=== PATIENT | male | born 1995 | race Caucasian/White ===

== ENCOUNTER 2022-03-05 19:25 | Inpatient (IN) ==
[2022-03-05] MEDS ORDERED: SODIUM CHLORIDE 0.9% 1000ML 1,000 ML IV SCH (20:30)
[2022-03-05 20:31] LABS: Basophils # (auto) 0.04 K/uL (0-0.2); Basophils % (auto) 0.4 %; Eosinophils # (auto) 0.09 K/uL (0-0.50); Eosinophils % (auto) 0.9 %; Hematocrit (blood only) 40.6 % (40.1-51.0); Hemoglobin 14.4 g/dl (14.0-18.0); Immature Granulocytes # (auto) 0.06 K/uL (0.00-0.02); Immature Granulocytes % (auto) 0.6 %; Lymphocytes # (auto) 1.15 K/uL (1.2-3.4); Lymphocytes % (auto) 11.6 %; Mean Corpuscular Hemoglobin 30.1 pg (25.0-34.0); Mean Corpuscular Hgb Conc 35.5 g/dL (32.0-36.0); Mean Corpuscular Volume 84.8 fL (80.0-100.0); Mean Platelet Volume 10.1 fL (9.4-12.4); Monocytes # (auto) 0.76 K/uL (0.24-0.82); Monocytes % (auto) 7.7 %; Neutrophils # (auto) 7.79 K/uL (1.4-6.5); Neutrophils % (auto) 78.8 %; Platelet Count 308 K/uL (130-400); RDW Coefficient of Variation 12.3 % (11.5-14.5); RDW Standard Deviation 37.8 fL (36.4-46.3); Red Blood Count 4.79 M/uL (4.63-6.08); White Blood Count 9.89 K/ul (4.8-10.8)
[2022-03-05] MEDS ORDERED: SULFAMETHOXAZOLE/TRIMETHOPRIM DS 800/160MG TAB PO ONE (20:51)
[2022-03-05] MEDS ORDERED: ceFAZolin 3,000 MG in DEXTROSE 5% 50 ML IV STA (20:51)
[2022-03-05] MEDS ORDERED: LIDOCAINE 1% LOCAL 20 ML VIAL INFIL ONE (20:52)
[2022-03-05 20:53] LABS: Albumin Globulin Ratio 1.2 (0.9-2); Albumin Level 4.6 gm/dl (3.4-5.0); BUN Creatinine Ratio 15.4 (10-20); Bilirubin,Total 1.4 mg/dl (0.2-1.0); Calcium 9.3 mg/dl (8.5-10.1); Creatinine Clr Calc Pharmacy 194.1 ml/min; Est GFR (African American) 146.4 ml/min; Est GFR (Non-African American) 126.3 ml/min; Globulin 3.7 gm/dl (2.5-4.0); Magnesium 2.1 mg/dl (1.7-2.4); Potassium 3.6 mmol/L (3.5-5.1); Total Protein 8.3 gm/dl (6.0-8.3)
[2022-03-05 20:57] LABS: Partial Thromboplastin Ratio 1.1; Partial Thromboplastin Time 30.6 Seconds (21.0-31.0); Prothrombin Time 11.1 Seconds (9.0-12.0)
[2022-03-06] MEDS ORDERED: ACETAMINOPHEN 500 MG TAB PO STA (00:30)
[2022-03-06] MEDS ORDERED: LACTATED RINGER'S 1,000 ML IV ONE (00:40)
--- NOTE | 2022-03-06 01:25 | Emergency Department Note ---
Impression & Plan Cellulitis of right elbow, Bursitis of right elbow, History of MRSA infection, Fever ED Provider Note CHIEF COMPLAINT: Right arm infection HISTORY OF PRESENT ILLNESS: This 26 yo male patient presents to the emergency department with complaints of a right arm infection. The patient states 5 days ago he noticed some elbow discomfort. Today he realized that the swelling and redness has gotten fairly large. The patient was noted to have a fever of 103 degrees at the urgent care clinic today and was referred to the emergency department. He denies any significant medical problems such as diabetes. He denies any known trauma to the elbow. Patient denies any significant occupational exposures. He has not been taking any medications recently. REVIEW OF SYSTEMS: A review of systems was performed with positives and pertinent negatives listed in the history of present illness. 10 systems were reviewed and are otherwise negative. ALLERGIES: see below MEDICATIONS: see below PMH: see below SOCIAL HISTORY: see below Differential diagnosis: Bursitis, cellulitis, abscess, fracture, foreign body, dislocation, DVT amongst others PHYSICAL EXAM: Vital signs reviewed. Warm to touch. Noted to be afebrile General: Well-appearing 26-year-old male, in no significant distress. HEENT: No scleral icterus, PERRLA, neck supple. Moist mucous membranes Cardiovascular: Regular rate and rhythm, no extra sounds. Pulmonary: Clear to auscultation bilaterally, normal work of breathing. Abdomen: Soft, nontender, nondistended, positive bowel sounds. Musculoskeletal: Atraumatic, no peripheral edema. Neurologic: Patient awake alert and oriented x 3, speech is clear Skin: Warm, dry, large area of erythema with induration and fluctuance noted at the right elbow. Erythema extends from the wrist to the axilla. Small papule noted at the elbow that was unroofed. EMERGENCY DEPARTMENT COURSE/MDM: This patient was evaluated and appeared to be in no significant distress. IV access was obtained and laboratory work was drawn. The patient was placed on the hospital monitor and noted to be in a sinus tachycardia. He was medicated with Tylenol for fever. Laboratory work including blood cultures were obtained. Patient's WBC and lactate are normal. Patient was medicated with 3 g of IV Ancef as well as p.o. Bactrim for MRSA coverage. The elbow was aspirated and fluid was sent. The patient does have a rather extensive cellulitis from the wrist to the axilla. Given the purulence of the material aspirated, an ultrasound was obtained and reveals no fluid collection remains. Patient's case was discussed with the hospitalist service will evaluate the patient for admission and further management. The patient is aware of the plan and agrees. MONITORING: An order for cardiac monitoring was placed and the patient is noted to be in a sinus tachycardia at 104 beats per minute. PROCEDURE: Aspiration Indication: Right elbow bursa/abscess Location: Right elbow Verbal consent was obtained after the risks and benefits were explained, including but not limited to bleeding, scarring, infection, pain, and bone/joint/nerve damage. At this time, the risks of the procedure are less than the risks of NOT performing the procedure. A time out was taken and the correct patient and site identified. The skin was prepped with betadine and a sterile field set. The wound was anesthetized with 2 ml of 1% lidocaine without epinephrine. An 18-gauge needle was used to aspirate the right elbow, approximately 3 mL of purulent material was aspirated. This will be sent for culture. Detailed wound care instructions and signs and symptoms of worsening infection reviewed with the patient. No complications and the patient tolerated the procedure well. RADIOLOGY: See below EKG: Sinus tachycardia at 107 bpm. No PVC, no PAC. QTc is 445. Normal axis. DISPOSITION: Admission Past Med/Surg History Medical History History of MRSA infection Social History Smoking Status: Never smoker Hx Alcohol Use: No Hx Substance Use: No Preferred Language: Kyrgyz Communication Ability: Effective Jukebox Route Driver Required: No Beliefs That Will Affect Care: None Current Living Situation: Other Current Living Situation Comment: roommates Feels Safe at Home: Yes Assistive Devices: None Allergies Allergies Allergy/AdvReac Type Severity Reaction Status Date / Time No Known Allergies Allergy Unverified 03/05/22 20:51 Home Meds Home Medications Medication Instructions Recorded Confirmed ibuprofen 200 mg tablet (Advil) 600 mg PO TID PRN Headache/pain 03/06/22 03/06/22 Previous Rx's Medication Instructions Recorded sulfamethoxazole 800 1 tab PO BID 14 days #28 tabs 03/08/22 mg-trimethoprim 160 mg tablet (Bactrim DS) Results & Data (ED) Vital Signs Vital Signs - 24 hr 03/05/22 19:28 03/05/22 20:30 03/05/22 21:00 Temperature 37.4 C Temperature Source Oral Pulse Rate 128 H 104 H Respiratory Rate 18 18 Respiratory Effort / Characteristics Non-Labored Respiratory Depth Normal Blood Pressure 139/82 152/85 H 141/74 H Blood Pressure Mean 101 107 96 Pulse Oximetry 97 96 Oxygen Delivery Method Room Air Room Air Sepsis Recent Fever Within 48 Hours No Sepsis New/Unexplained Change in Mental Status No Sepsis Action Taken by Nursing No Action Required 03/05/22 21:30 03/05/22 22:00 03/05/22 22:30 Temperature Temperature Source Pulse Rate 99 H 109 H 102 H Respiratory Rate 27 H 15 26 H Respiratory Effort / Characteristics Respiratory Depth Blood Pressure 135/73 123/91 140/80 Blood Pressure Mean 93 101 100 Pulse Oximetry 98 99 99 Oxygen Delivery Method Room Air Room Air Room Air Sepsis Recent Fever Within 48 Hours Sepsis New/Unexplained Change in Mental Status Sepsis Action Taken by Nursing 03/05/22 23:00 03/06/22 00:28 03/06/22 00:37 Temperature 38.3 C H Temperature Source Oral Pulse Rate 101 H 114 H Respiratory Rate 16 16 Respiratory Effort / Characteristics Respiratory Depth Blood Pressure 153/89 H 145/82 H Blood Pressure Mean 110 103 Pulse Oximetry 98 99 Oxygen Delivery Method Room Air Room Air Sepsis Recent Fever Within 48 Hours Sepsis New/Unexplained Change in Mental Status Sepsis Action Taken by Jail Medications Current Medication List: was personally reviewed by me Laboratory Data Attestation: I reviewed the patient's lab results. Result diagrams: 03/07/22 09:16 03/07/22 09:16 Lab Results 03/05/22 03/05/22 03/05/22 Range/Units 19:42 19:42 19:42 WBC 9.89 (4.8-10.8) K/ul RBC 4.79 (4.63-6.08) M/uL Hgb 14.4 (14.0-18.0) g/dl Hct 40.6 (40.1-51.0) % MCV 84.8 (80.0-100.0) fL MCH 30.1 (25.0-34.0) pg MCHC 35.5 (32.0-36.0) g/dL RDW Std Deviation 37.8 (36.4-46.3) fL RDW Coeff of Liseth 12.3 (11.5-14.5) % Plt Count 308 (130-400) K/uL MPV 10.1 (9.4-12.4) fL Immature Gran % (Auto) 0.6 % Neut % (Auto) 78.8 % Lymph % (Auto) 11.6 % Mesa % (Auto) 7.7 % Eos % (Auto) 0.9 % Baso % (Auto) 0.4 % Neut # (Auto) 7.79 H (1.4-6.5) K/uL Lymph # (Auto) 1.15 L (1.2-3.4) K/uL Mesa # (Auto) 0.76 (0.24-0.82) K/uL Eos # (Auto) 0.09 (0-0.50) K/uL Baso # (Auto) 0.04 (0-0.2) K/uL Immature Gran # (Auto) 0.06 H (0.00-0.02) K/uL ESR (0-15) mm/hr PT 11.1 (9.0-12.0) Seconds INR 1.0 (0.9-1.1) APTT 30.6 (21.0-31.0) Seconds PTT Ratio 1.1 Sodium 137 (136-145) mmol/L Potassium 3.6 (3.5-5.1) mmol/L Chloride 102 (98-107) mmol/L Carbon Dioxide 24 (21-32) mmol/L Anion Gap 11 (3-11) BUN 12 (6-23) mg/dl Creatinine 0.78 (0.6-1.4) mg/dl Est Cr Clr Drug Dosing 194.1 ml/min Est GFR ( Amer) 146.4 ml/min Est GFR (Non-Af Amer) 126.3 ml/min BUN/Creatinine Ratio 15.4 (10-20) Glucose 90 (70-99(Fasting)) mg/dl Lactate (0.4-2.0) mmol/L Uric Acid 5.4 (2.6-7.2) mg/dl Calcium 9.3 (8.5-10.1) mg/dl Magnesium 2.1 (1.7-2.4) mg/dl Total Bilirubin 1.4 H (0.2-1.0) mg/dl AST 21 (13-39) U/L ALT 18 (7-52) U/L Alkaline Phosphatase 54 (34-104) U/L C-Reactive Protein (0-0.5) mg/dl Total Protein 8.3 (6.0-8.3) gm/dl Albumin 4.6 (3.4-5.0) gm/dl Globulin 3.7 (2.5-4.0) gm/dl Albumin/Globulin Ratio 1.2 (0.9-2) Procalcitonin (0-0.5) ng/ml Nasal Screen MRSA (PCR) (Negative) SARS-CoV-2, RNA, NAAT (NEGATIVE) 03/05/22 03/05/22 03/06/22 Range/Units 20:31 21:54 02:30 WBC (4.8-10.8) K/ul RBC (4.63-6.08) M/uL Hgb (14.0-18.0) g/dl Hct (40.1-51.0) % MCV (80.0-100.0) fL MCH (25.0-34.0) pg MCHC (32.0-36.0) g/dL RDW Std Deviation (36.4-46.3) fL RDW Coeff of Liseth (11.5-14.5) % Plt Count (130-400) K/uL MPV (9.4-12.4) fL Immature Gran % (Auto) % Neut % (Auto) % Lymph % (Auto) % Mesa % (Auto) % Eos % (Auto) % Baso % (Auto) % Neut # (Auto) (1.4-6.5) K/uL Lymph # (Auto) (1.2-3.4) K/uL Mesa # (Auto) (0.24-0.82) K/uL Eos # (Auto) (0-0.50) K/uL Baso # (Auto) (0-0.2) K/uL Immature Gran # (Auto) (0.00-0.02) K/uL ESR (0-15) mm/hr PT (9.0-12.0) Seconds INR (0.9-1.1) APTT (21.0-31.0) Seconds PTT Ratio Sodium (136-145) mmol/L Potassium (3.5-5.1) mmol/L Chloride (98-107) mmol/L Carbon Dioxide (21-32) mmol/L Anion Gap (3-11) BUN (6-23) mg/dl Creatinine (0.6-1.4) mg/dl Est Cr Clr Drug Dosing ml/min Est GFR ( Amer) ml/min Est GFR (Non-Af Amer) ml/min BUN/Creatinine Ratio (10-20) Glucose (70-99(Fasting)) mg/dl Lactate 0.9 (0.4-2.0) mmol/L Uric Acid (2.6-7.2) mg/dl Calcium (8.5-10.1) mg/dl Magnesium (1.7-2.4) mg/dl Total Bilirubin (0.2-1.0) mg/dl AST (13-39) U/L ALT (7-52) U/L Alkaline Phosphatase (34-104) U/L C-Reactive Protein (0-0.5) mg/dl Total Protein (6.0-8.3) gm/dl Albumin (3.4-5.0) gm/dl Globulin (2.5-4.0) gm/dl Albumin/Globulin Ratio (0.9-2) Procalcitonin < 0.05 (0-0.5) ng/ml Nasal Screen MRSA (PCR) (Negative) SARS-CoV-2, RNA, NAAT NEGATIVE (NEGATIVE) 03/06/22 03/06/22 03/06/22 Range/Units 04:55 07:42 07:42 WBC 9.89 (4.8-10.8) K/ul RBC 4.78 (4.63-6.08) M/uL Hgb 13.8 L (14.0-18.0) g/dl Hct 39.7 L (40.1-51.0) % MCV 83.1 (80.0-100.0) fL MCH 28.9 (25.0-34.0) pg MCHC 34.8 (32.0-36.0) g/dL RDW Std Deviation 37.8 (36.4-46.3) fL RDW Coeff of Liseth 12.5 (11.5-14.5) % Plt Count 300 (130-400) K/uL MPV 10.0 (9.4-12.4) fL Immature Gran % (Auto) 0.5 % Neut % (Auto) 80.0 % Lymph % (Auto) 9.7 % Mesa % (Auto) 8.9 % Eos % (Auto) 0.6 % Baso % (Auto) 0.3 % Neut # (Auto) 7.91 H (1.4-6.5) K/uL Lymph # (Auto) 0.96 L (1.2-3.4) K/uL Mesa # (Auto) 0.88 H (0.24-0.82) K/uL Eos # (Auto) 0.06 (0-0.50) K/uL Baso # (Auto) 0.03 (0-0.2) K/uL Immature Gran # (Auto) 0.05 H (0.00-0.02) K/uL ESR (0-15) mm/hr PT (9.0-12.0) Seconds INR (0.9-1.1) APTT (21.0-31.0) Seconds PTT Ratio Sodium 137 (136-145) mmol/L Potassium 3.8 (3.5-5.1) mmol/L Chloride 104 (98-107) mmol/L Carbon Dioxide 22 (21-32) mmol/L Anion Gap 11 (3-11) BUN 7 (6-23) mg/dl Creatinine 0.61 (0.6-1.4) mg/dl Est Cr Clr Drug Dosing 248.1 ml/min Est GFR ( Amer) > 150.0 ml/min Est GFR (Non-Af Amer) 139.8 ml/min BUN/Creatinine Ratio 11.5 (10-20) Glucose 84 (70-99(Fasting)) mg/dl Lactate (0.4-2.0) mmol/L Uric Acid (2.6-7.2) mg/dl Calcium 9.7 (8.5-10.1) mg/dl Magnesium 2.2 (1.7-2.4) mg/dl Total Bilirubin (0.2-1.0) mg/dl AST (13-39) U/L ALT (7-52) U/L Alkaline Phosphatase (34-104) U/L C-Reactive Protein (0-0.5) mg/dl Total Protein (6.0-8.3) gm/dl Albumin (3.4-5.0) gm/dl Globulin (2.5-4.0) gm/dl Albumin/Globulin Ratio (0.9-2) Procalcitonin (0-0.5) ng/ml Nasal Screen MRSA (PCR) Negative (Negative) SARS-CoV-2, RNA, NAAT (NEGATIVE) 03/06/22 03/06/22 03/07/22 Range/Units 15:21 15:21 09:16 WBC 8.84 (4.8-10.8) K/ul RBC 4.62 L (4.63-6.08) M/uL Hgb 13.5 L (14.0-18.0) g/dl Hct 39.0 L (40.1-51.0) % MCV 84.4 (80.0-100.0) fL MCH 29.2 (25.0-34.0) pg MCHC 34.6 (32.0-36.0) g/dL RDW Std Deviation 37.0 (36.4-46.3) fL RDW Coeff of Liseth 12.2 (11.5-14.5) % Plt Count 308 (130-400) K/uL MPV 9.2 L (9.4-12.4) fL Immature Gran % (Auto) 0.6 % Neut % (Auto) 75.6 % Lymph % (Auto) 13.5 % Mesa % (Auto) 9.3 % Eos % (Auto) 0.5 % Baso % (Auto) 0.5 % Neut # (Auto) 6.70 H (1.4-6.5) K/uL Lymph # (Auto) 1.19 L (1.2-3.4) K/uL Mesa # (Auto) 0.82 (0.24-0.82) K/uL Eos # (Auto) 0.04 (0-0.50) K/uL Baso # (Auto) 0.04 (0-0.2) K/uL Immature Gran # (Auto) 0.05 H (0.00-0.02) K/uL ESR 75 H (0-15) mm/hr PT (9.0-12.0) Seconds INR (0.9-1.1) APTT (21.0-31.0) Seconds PTT Ratio Sodium (136-145) mmol/L Potassium (3.5-5.1) mmol/L Chloride (98-107) mmol/L Carbon Dioxide (21-32) mmol/L Anion Gap (3-11) BUN (6-23) mg/dl Creatinine (0.6-1.4) mg/dl Est Cr Clr Drug Dosing ml/min Est GFR ( Amer) ml/min Est GFR (Non-Af Amer) ml/min BUN/Creatinine Ratio (10-20) Glucose (70-99(Fasting)) mg/dl Lactate (0.4-2.0) mmol/L Uric Acid (2.6-7.2) mg/dl Calcium (8.5-10.1) mg/dl Magnesium (1.7-2.4) mg/dl Total Bilirubin (0.2-1.0) mg/dl AST (13-39) U/L ALT (7-52) U/L Alkaline Phosphatase (34-104) U/L C-Reactive Protein 26.33 H (0-0.5) mg/dl Total Protein (6.0-8.3) gm/dl Albumin (3.4-5.0) gm/dl Globulin (2.5-4.0) gm/dl Albumin/Globulin Ratio (0.9-2) Procalcitonin (0-0.5) ng/ml Nasal Screen MRSA (PCR) (Negative) SARS-CoV-2, RNA, NAAT (NEGATIVE) 03/07/22 Range/Units 09:16 WBC (4.8-10.8) K/ul RBC (4.63-6.08) M/uL Hgb (14.0-18.0) g/dl Hct (40.1-51.0) % MCV (80.0-100.0) fL MCH (25.0-34.0) pg MCHC (32.0-36.0) g/dL RDW Std Deviation (36.4-46.3) fL RDW Coeff of Liseth (11.5-14.5) % Plt Count (130-400) K/uL MPV (9.4-12.4) fL Immature Gran % (Auto) % Neut % (Auto) % Lymph % (Auto) % Mesa % (Auto) % Eos % (Auto) % Baso % (Auto) % Neut # (Auto) (1.4-6.5) K/uL Lymph # (Auto) (1.2-3.4) K/uL Mesa # (Auto) (0.24-0.82) K/uL Eos # (Auto) (0-0.50) K/uL Baso # (Auto) (0-0.2) K/uL Immature Gran # (Auto) (0.00-0.02) K/uL ESR (0-15) mm/hr PT (9.0-12.0) Seconds INR (0.9-1.1) APTT (21.0-31.0) Seconds PTT Ratio Sodium 135 L (136-145) mmol/L Potassium 3.8 (3.5-5.1) mmol/L Chloride 101 (98-107) mmol/L Carbon Dioxide 25 (21-32) mmol/L Anion Gap 9 (3-11) BUN 9 (6-23) mg/dl Creatinine 0.67 (0.6-1.4) mg/dl Est Cr Clr Drug Dosing 225.8 ml/min Est GFR ( Amer) > 150.0 ml/min Est GFR (Non-Af Amer) 134.5 ml/min BUN/Creatinine Ratio 13.4 (10-20) Glucose 81 (70-99(Fasting)) mg/dl Lactate (0.4-2.0) mmol/L Uric Acid (2.6-7.2) mg/dl Calcium 9.8 (8.5-10.1) mg/dl Magnesium (1.7-2.4) mg/dl Total Bilirubin (0.2-1.0) mg/dl AST (13-39) U/L ALT (7-52) U/L Alkaline Phosphatase (34-104) U/L C-Reactive Protein (0-0.5) mg/dl Total Protein (6.0-8.3) gm/dl Albumin (3.4-5.0) gm/dl Globulin (2.5-4.0) gm/dl Albumin/Globulin Ratio (0.9-2) Procalcitonin (0-0.5) ng/ml Nasal Screen MRSA (PCR) (Negative) SARS-CoV-2, RNA, NAAT (NEGATIVE) Administered Medications Discontinued Medications Acetaminophen (Acetaminophen 500 Mg Tab) 1,000 mg PO NOW STA Stop: 03/06/22 00:31 Last Admin: 03/06/22 00:34 Dose: 1,000 mg Documented By: VIVIAN Acetaminophen (Acetaminophen 325 Mg Tab) 650 mg PO Q6H PRN PRN Reason: pain/fever Stop: 04/05/22 03:23 Last Admin: 03/06/22 15:12 Dose: 650 mg Documented By: BARB Acetaminophen (Acetaminophen 500 Mg Tab) 1,000 mg PO Q8 LORE Stop: 04/06/22 21:59 Last Admin: 03/08/22 13:07 Dose: 1,000 mg Documented By: Admin: 03/08/22 05:39 Dose: Not Given Documented By: Admin: 03/07/22 21:21 Dose: 1,000 mg Documented By: SANCHEZ Aspirin (Aspirin 81 Mg Ectab) 81 mg PO BID LORE Stop: 04/06/22 20:59 Last Admin: 03/08/22 08:15 Dose: 81 mg Documented By: Admin: 03/07/22 21:22 Dose: 81 mg Documented By: SANCHEZ Docusate Sodium (Docusate Sodium 100 Mg Cap) 100 mg PO BID LORE Stop: 04/06/22 20:59 Last Admin: 03/08/22 08:15 Dose: 100 mg Documented By: Admin: 03/07/22 22:19 Dose: Not Given Documented By: SANCHEZ Sodium Chloride (Nss 1000ml) 1,000 mls @ 999 mls/hr IV .Q1H1M LORE Stop: 03/05/22 21:30 Last Infusion: 03/05/22 21:22 Dose: 0 mls/hr Documented By: Admin: 03/05/22 20:21 Dose: 999 mls/hr Documented By: VIVIAN Cefazolin Sodium 3,000 mg/ (Dextrose) 72.5 mls @ 145 mls/hr IV NOW STA Stop: 03/05/22 21:20 Last Infusion: 03/05/22 23:24 Dose: 0 mls/hr Documented By: Admin: 03/05/22 22:54 Dose: 145 mls/hr Documented By: KOKO Lactated Ringer's (Lr) 1,000 mls @ 500 mls/hr IV .Q2H ONE Stop: 03/06/22 02:39 Last Admin: 03/06/22 02:32 Dose: Not Given Documented By: VIVIAN Daptomycin 500 mg/ Syringe 10 mls @ 5.75 mls/min IV Q24H LORE; Protocol Stop: 03/13/22 02:59 Last Admin: 03/08/22 01:42 Dose: 5.75 mls/min Documented By: Admin: 03/07/22 02:47 Dose: 5.75 mls/min Documented By: Admin: 03/06/22 02:51 Dose: 5.75 mls/min Documented By: VIVIAN Lactated Ringer's (Lr) 1,000 mls @ 150 mls/hr IV .Q6H40M LORE Stop: 04/05/22 02:14 Last Infusion: 03/06/22 12:11 Dose: 0 mls/hr Documented By: Admin: 03/06/22 10:42 Dose: 150 mls/hr Documented By: Infusion: 03/06/22 10:14 Dose: 0 mls/hr Documented By: Infusion: 03/06/22 05:56 Dose: 150 mls/hr Documented By: Admin: 03/06/22 02:51 Dose: 150 mls/hr Documented By: VIVIAN Sodium Chloride (Nss 1000ml) 1,000 mls @ 100 mls/hr IV .Q10H LORE Stop: 03/08/22 06:00 Last Infusion: 03/07/22 21:22 Dose: 0 mls/hr Documented By: Admin: 03/07/22 19:15 Dose: 100 mls/hr Documented By: SANCHEZ Ketorolac Tromethamine (Ketorolac 30 Mg/Ml Vial) 30 mg IV Q6H LORE Stop: 03/09/22 13:26 Last Admin: 03/08/22 13:02 Dose: 30 mg Documented By: Admin: 03/08/22 08:14 Dose: 30 mg Documented By: Admin: 03/08/22 01:42 Dose: 30 mg Documented By: Admin: 03/07/22 21:22 Dose: 30 mg Documented By: SANCHEZ Lidocaine HCl (Lidocaine 1% Local 20 Ml Vial) 20 ml INFIL NOW ONE Stop: 03/05/22 20:53 Last Admin: 03/05/22 22:00 Dose: 20 ml Documented By: VIVIAN Multivitamins (Multivitamin Tab) 1 tab PO QAM LORE Stop: 04/07/22 08:59 Last Admin: 03/08/22 08:15 Dose: 1 tab Documented By: CORRINE Sennosides (Senna 8.6 Mg Tab) 17.2 mg PO HS LORE Stop: 04/06/22 20:59 Last Admin: 03/07/22 22:19 Dose: Not Given Documented By: NCLuz Elena Trimethoprim/Sulfamethoxazole (Sulfamethoxazole/Trimethoprim Ds 800/160mg Tab) 1 tab PO NOW ONE Stop: 03/05/22 20:52 Last Admin: 03/05/22 22:53 Dose: 1 tab Documented By: KOKO Vancomycin HCl (Vancomycin Hcl 1000mg/20ml Vial) Confirm Administered Dose 50 mg .ROUTE .STK-MED ONE Stop: 03/07/22 16:58 Last Admin: 03/07/22 17:37 Dose: 1,000 mg Documented By: SELENE Blood Pressure Blood Pressure Findings: Normal blood pressure Blood Pressure Disposition: further management by hospitalist Discharge Plan Visit Data Chief Complaint: Infection Stated Complaint: INFECTION IN RIGHT ELBOW ED Provider: Adrianne Vaughn Discharge Problem: Cellulitis of right elbow, Bursitis of right elbow, History of MRSA infection, Fever Patient Disposition: Admitted As Inpatient Discharge Instructions Interventions: ED Discharge Assessment Last Done: 03/06/22 03:14 : Bursitis of right elbow Qualifiers: Elbow bursitis location: olecranon bursitis Qualified Code(s): M70.21 - Olecranon bursitis, right elbow Fever Qualifiers: Fever type: due to other condition Qualified Code(s): R50.81 - Fever presenting with conditions classified elsewhere
--- NOTE | 2022-03-06 02:05 | History & Physical Report ---
Date of Service March 06, 2022 Assessment & Plan (1) Sepsis: Plan: Adrian Haley is a 26yo male with h/o MRSA (hand cellulitis x2) who presented to [facility] ED for a skin infection of his right elbow. Sepsis due to right elbow cellulitis and bursitis SIRS 3/4, qSOFA 1/3. Right elbow XR with soft tissue edema but no evidence of osteomyelitis. Bursitis aspirated and follow up US without evidence for deep fluid collection. Symptoms are acute in nature - low suspicion for osteomyelitis and thus will hold on further imaging (i.e. MRI). - lactate 0.9, procalcitonin pending - check MRSA nares - received Ancef x1 and Bactrim x1 in ED - will continue with Daptomycin - blood cx and right bursitis fluid cx taken before initiation of abx - trend and adjust abx as necessary - s/p 1L NSS bolus - continue with full maintenance IVFs with LR @150cc/hr - trend CBC in AM FEN/GI: regular diet, LR @150cc/hr DVT Prophylaxis: SCDs Code Status: full code Disposition: med/surg (2) Cellulitis of right elbow: (3) Bursitis of right elbow: (4) History of MRSA infection: History of Present Illness Chief Complaint: infection Primary Care Provider: NO PCP Adrian Haley is a 26yo male with h/o MRSA (hand cellulitis x2) who presented to [facility] ED for a skin infection of his right elbow. Patient reports that he bumped his right elbow into a wall ~6 days ago and the next day noticed a red rash over the elbow. Over last 5 days it has progressively increased in size - now has an erythematous rash from right elbow to right wrist with associated warmth, swelling and tenderness which is greatest over the elbow itself. Also reports subjective fever/chills which started ~1 day ago. [facility] and was told to come to the ED. Patient denies laceration of right elbow/arm. Denies nausea/vomiting, shortness of breath, or other rashes. He does not drink or smoke. In the ED the patient was febrile with T38.3C, tachypneic at 27, and tachycardic to 128. Labs significant for WBC 9.89 (neutrophilic predominance and mild left shift), TBili 1.4. Lactate 0.9. CBC/CMP otherwise WNL. COVID-19 negative. XR right elbow showing soft tissue edema without signs of osteomyelitis. ED provider performed arthrocentesis of right bursa with purulent fluid - gram stain/cx pending. Patient was given Ancef 3g IV x1 and Bactrim PO x1. Was also given Tylenol 1g PO x1 and NSS 1L bolus. Blood cx and right bursa fluid cx taken before initiation of abx. Allergies Allergy/AdvReac Type Severity Reaction Status Date / Time No Known Allergies Allergy Unverified 03/05/22 20:51 Home Medications Medication Instructions Recorded Confirmed Type ibuprofen 200 mg tablet (Advil) 600 mg PO TID PRN 03/06/22 03/06/22 History Past Med/Surg History Medical History History of MRSA infection Social History Smoking Status: Never smoker Hx Alcohol Use: No Hx Substance Use: No Preferred Language: Honduran Communication Ability: Effective Mainframe Programmer Required: No Beliefs That Will Affect Care: None Current Living Situation: Other Current Living Situation Comment: roommates Other Information That Helps Us Care for You: No Feels Safe at Home: Yes Safety Concerns: Feels Safe At This Time Assistive Devices: None Review of Systems Review of Systems: All systems reviewed & are unremarkable except as noted in HPI & below Physical Exam Physical Exam: General: A&Ox3. NAD. Cooperative. HEENT: Atraumatic, normocephalic. Pulm: CTAB A&P. -wheezes, -rales, -rhonchi. Symmetrical chest rise. No increase work of breathing. No respiratory distress. Cardiac: RRR, -mrg. Radial pulses intact and symmetrical. No LE edema. Abdominal: soft, non-tender, non-distended, BS x 4 Right elbow: erythematous rash with associated swelling/warmth/tenderness spanning from olecranon process to lateral wrist, covering ~50% of forearm. Band-aid overlying area of bursitis (placed after aspiration). Results & Data Results & Data ([facility]) Vital Signs (Past 12 Hours) Vital Signs Temp Pulse Resp BP Pulse Ox 03/06/22 00:37 114 H 16 145/82 H 99 03/06/22 00:28 38.3 C H 03/05/22 23:00 101 H 16 153/89 H 98 03/05/22 22:30 102 H 26 H 140/80 99 03/05/22 22:00 109 H 15 123/91 99 03/05/22 21:30 99 H 27 H 135/73 98 03/05/22 21:00 141/74 H 03/05/22 20:30 104 H 18 152/85 H 96 03/05/22 19:28 37.4 C 128 H 18 139/82 97 Supervising Physician Co-Signing Physician Notes Attending addendum: I have physically seen this patient, have supervised the medical residents activities, and agree with the H&P unless as otherwise noted. Assessment and Plan: Sepsis due to right elbow bursitis and cellulitis- Status post Ancef IV and Bactrim p.o. in the ED Placed on daptomycin 4 mg kilogram IV every 24 hours Status post 1 L normal saline bolus LR 150 mils per hour Follow clinical examination Check uric acid level Remaining orders and notations as noted Resident Activity Tracking Resident Involvement: Resident Care Provided Care Provided: Adult Hospital Medicine
[2022-03-06 02:21] LABS: Uric Acid 5.4 mg/dl (2.6-7.2)
[2022-03-06] MEDS: LACTATED RINGER'S 1,000 ML IV SCH ×2 (02:51→10:42)
[2022-03-06] MEDS: DAPTOmycin 500 MG in SYRINGE 0 ML IV SCH (02:51)
[2022-03-06] MEDS ORDERED: ACETAMINOPHEN 325 MG TAB PO PRN (03:24)
--- NOTE | 2022-03-06 07:08 | XRay Report ---
XR elbow RT min 3V routine CLINICAL HISTORY: possible cellutlitis. COMPARISON STUDY: No previous studies for comparison. TECHNIQUE: 3 right elbow views FINDINGS: Bones: There is no evidence for an acute fracture or dislocation. There is no lytic or blastic lesion . Joints: The joint spaces are maintained. There is no evidence for an intra-articular effusion or elevation of the fat pads. The bones are in a natomic alignment. Soft tissues: There is diffuse subcutaneous edema surrounding the elbow. The findings are characteris tic of cellulitis. No air is seen within the soft tissues. There is no radiopaque foreign body. IMPRESSION: 1. No acute osseous pathology. 2. Diffuse subcutaneous edema characteristic of cellulitis. ACT 112: Negative or not required by law. Electronically signed by: Zak Luke M.D. 03/06/2022 7:07 AM
--- NOTE | 2022-03-06 07:16 | Ultrasound Report ---
US extremity non-vascular ltd right elbow CLINICAL HISTORY: abscess R elbow bursa w cellulitis TECHNIQUE: Real-time grayscale sonographic images of the right elbow were obtained. Comparison: None available at the time of this dictation. FINDINGS: There is diffuse subcutaneous edema surrounding the right elbow characteristic of celluliti s. However, there is no focal fluid seen within the olecranon bursa with no evidence for olecranon bu rsitis. IMPRESSION: Diffuse cellulitis with no evidence for olecranon bursitis. ACT 112: Negative or not required by law. Electronically signed by: Zak Luke M.D. 03/06/2022 7:15 AM
[2022-03-06 08:31] LABS: Basophils # (auto) 0.03 K/uL (0-0.2); Basophils % (auto) 0.3 %; Eosinophils # (auto) 0.06 K/uL (0-0.50); Eosinophils % (auto) 0.6 %; Hematocrit (blood only) 39.7 % (40.1-51.0); Hemoglobin 13.8 g/dl (14.0-18.0); Immature Granulocytes # (auto) 0.05 K/uL (0.00-0.02); Immature Granulocytes % (auto) 0.5 %; Lymphocytes # (auto) 0.96 K/uL (1.2-3.4); Lymphocytes % (auto) 9.7 %; Mean Corpuscular Hemoglobin 28.9 pg (25.0-34.0); Mean Corpuscular Hgb Conc 34.8 g/dL (32.0-36.0); Mean Corpuscular Volume 83.1 fL (80.0-100.0); Monocytes # (auto) 0.88 K/uL (0.24-0.82); Monocytes % (auto) 8.9 %; Neutrophils # (auto) 7.91 K/uL (1.4-6.5); Platelet Count 300 K/uL (130-400); RDW Coefficient of Variation 12.5 % (11.5-14.5); RDW Standard Deviation 37.8 fL (36.4-46.3); Red Blood Count 4.78 M/uL (4.63-6.08); White Blood Count 9.89 K/ul (4.8-10.8)
[2022-03-06 08:53] LABS: Anion Gap 11 (3-11); BUN Creatinine Ratio 11.5 (10-20); Blood Urea Nitrogen 7 mg/dl (6-23); Calcium 9.7 mg/dl (8.5-10.1); Carbon Dioxide 22 mmol/L (21-32); Chloride 104 mmol/L (98-107); Creatinine Clr Calc Pharmacy 248.1 ml/min; Est GFR (African American) > 150.0 ml/min; Est GFR (Non-African American) 139.8 ml/min; Glucose 84 mg/dl (70-99(Fasting)); Magnesium 2.2 mg/dl (1.7-2.4); Potassium 3.8 mmol/L (3.5-5.1); Sodium 137 mmol/L (136-145)
--- NOTE | 2022-03-06 12:55 | Electrocardiogram Report ---
Test Reason : Blood Pressure : / mmHG Vent. Rate : 107 BPM Atrial Rate : 107 BPM P-R Int : 184 ms QRS Dur : 094 ms QT Int : 334 ms P-R-T Axes : 054 043 025 degrees QTc Int : 445 ms Sinus tachycardia Otherwise normal ECG No previous ECGs available Confirmed by Roque Nieves ([id number]) on 03/06/2022 12:54:38 PM Referred By: REFERRED SELF Confirmed By:Maxx Nieves
--- NOTE | 2022-03-06 15:46 | Orthopedic Consultation ---
Date of Service March 06, 2022 Assessment & Plan (1) Cellulitis of right elbow: I think are mostly dealing with cellulitis of the right arm. The ultrasound did not show any fluid collection around his right elbow. He is currently on daptomycin. We will try to treat this with IV antibiotics. We will keep him n.p.o. past midnight tonight in case he begins having a fluid collection of his right elbow, at which point we would take him to the operating room and do an irrigation debridement of his elbow. However, given the diffuse swelling and the lack of a fluid collection, we will likely try to treat this with IV antibiotics. We will continue to follow him closely. History of Present Illness Reason for Consultation: Cellulitis of the right elbow. Requesting Physician: . Attending Physician: Joshua Umanzor MD Adrian is a pleasant 26-year-old male who has a history of MRSA. He bumped his elbow about a week ago and he noticed his elbow became a little red. Unfortunately, it has become progressively worse over the past week. He now has pain and swelling throughout his right arm. He went to the emergency room. He was given Ancef and Bactrim. The elbow was aspirated and 3 cc of purulent fluid was aspirated. That was sent to lab and since grown out staph. An ultrasound was done of the right elbow and there was no evidence of fluid collection. He was admitted to the hospital and started on daptomycin. Orthopedics was consulted to evaluate and treat. 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 Physical Exam Of the right elbow, he has diffuse swelling of his whole arm. He has pain with range of motion of his elbow. He has a large Band-Aid over the aspiration site. When I flex his elbow on the able to get out just a little bit of bloody and purulent discharge from the aspiration site. He is otherwise neurovascular intact. Constitutional WD/WN, vitals as above Eyes PERRL, conjunctivae normal, anicteric sclerae ENMT external ear and nose normal, oropharynx normal Neck trachea midline, no thyromegaly Respiratory normal respiratory effort Cardiovascular RRR, no murmur, no edema Gastrointestinal (Abdomen) normal bowel sounds, soft, nontender, no hepatosplenomegaly Psychiatric A+Ox3, euthymic affect Results & Data Results & Data Laboratory Results . Diagnostic Findings X-rays of the right elbow were negative. Cultures from the aspirate of his right elbow grew out staph. PG Care Time/CCT Total # of Minutes Spent Total Time Spent with Patient: Total time spent is greater than 50% in coordination of care (as documented) at patient's floor/unit and/or counseling patient: Coding Level of Care Code 56706 Inpt Consult Level 4 Diagnoses Cellulitis of right elbow L03.113
--- NOTE | 2022-03-06 16:31 | Hospitalist Progress Note ---
Date of Service March 06, 2022 Assessment & Plan (1) Sepsis: Plan: - Met sepsis criteria with fever and tachycardia with source of cellulitis and ?bursitis of R elbow - Treated with IVF, empiric abx (covering specifically for MRSA d/t his history) with Daptomycin - APAP as needed for fever >38C or pain - Blood cultures x 2 sets and aspirated fluid sent also for C&S, prelim growth of staph - Await final culture results to guide antibiotic therapy (2) Cellulitis of right elbow: Plan: - Suspicious that cellulitis is secondary to septic olecranon bursitis - Fluid aspirated and sent for C&S - Continue Daptomycin - Orthopedics consulted, appreciate input from Dr. Flores - NPO after MN in event that he will require I&D Plan: As above. Very low risk for DVT therefore no DVT ppx as been ordered. Monitor response to IV abx overnight, hopefully can d/c home on course of oral abx tomorrow. Pt agrees with plan. Reviewed with attending, Dr. Capri Umanzor. Admission and Anticipated Discharge Date Admission Date: March 06, 2022 Subjective Patient seen on daily rounds this morning. Admitted overnight with cellulitis and questionable septic olecranon bursitis of right elbow. He has a h/o MRSA infection, has been empirically started on Daptomycin. ER MD was able to aspirate purulent material from elbow and sent it to lab for C&S. Presently, pt notes that pain and swelling has improved. Did admit to sustaining a "bump" to the elbow a short while ago. Has had two fevers since admission of >/= 38C. No significant chills. No issues reported by nursing. Review of Systems Review of Systems: All systems reviewed and are unremarkable except as noted in HPI and below. Denies chills, fatigue, headache, nasal congestion, sore throat, cough, chest pain, shortness of breath, palpitations, orthopnea, PND, abdominal pain, n/v/d, constipation, dysuria, hematuria, frequency, back pain, easy bruising or bleeding, skin lesions or rashes. Physical Exam Physical Exam: GENERAL: 26 yo well-developed, well-nourished WM. NAD. LUNGS: Clear to auscultation bilaterally. No W/R/R. CARDIOVASCULAR: Normal S1 S2 tachycardic, no m/g/r ABDOMEN: Soft, non-tender and non-distended. BS normoactive x 4 quad. EXTREMITIES: No edema. Non-tender. Peripheral pulses +2/4. NEUROLOGIC: A&O x3. PSYCHIATRIC: Cooperative. Appropriate mood and affect. SKIN: Right elbow and forearm erythematous and edematous. Area aspirated covered with bandage. No active purulent drainage. Tender to palpation. Results & Data Results & Data ([facility]) Vital Signs (Past 12 Hours) Vital Signs Temp Pulse Resp BP Pulse Ox 03/06/22 15:42 37.3 C 03/06/22 14:44 38.1 C H 108 H 16 120/72 98 03/06/22 06:59 37.1 C 109 H 14 128/65 98 Laboratory Results 03/06/22 07:42 03/06/22 07:42 PG Care Time/CCT Total # of Minutes Spent Total Time Spent with Patient: Total time spent is greater than 50% in coordination of care (as documented) at patient's floor/unit and/or counseling patient: Coding Level of Care Code None Diagnoses Cellulitis of right elbow L03.113 Sepsis A41.9
--- NOTE | 2022-03-06 20:22 | Billing Data ---
Date of Service March 06, 2022 Coding Level of Care Code INT OBSERVATION CARE 70M LVL 3
--- NOTE | 2022-03-06 21:31 | Magnetic Resonance Report ---
MRI OF THE ELBOW COMBO CLINICAL HISTORY: Bursitis. COMPARISON STUDY: Radiographs of the right elbow dated 03/05/2022. TECHNIQUE: MRI of the right elbow is performed utilizing various T1 and T2-weighted sequences in the axial, sagittal, and coronal planes. Contrast-enhanced sequences were acquired following the IV admin istration of 11 cc of Gadavist. Examination is severely degraded by motion artifact. FINDINGS: Normal marrow signal intensity is maintained throughout the visualized bony structures. The re is no MRI evidence of fracture. There is trace joint fluid with no significant effusion identified . The common flexor and common extensor tendons are intact. The radial and ulnar collateral ligaments are intact as visualized. No osteochondral abnormality is identified. The long head of the biceps te ndon and the triceps tendon are intact. There is significant soft tissue edema identified around the elbow, greatest dorsally. There is a multiloculated fluid collection overlying the olecranon process measuring approximately 5 x 2 x 4.5 cm. This demonstrates nonspecific peripheral enhancement. There i s nonspecific edema within the triceps musculature, as well as within the flexor musculature of the u pper forearm. IMPRESSION: 1. Significantly motion compromised examination. 2. Soft tissue edema is present around the elbow with a peripherally enhancing olecranon bursal fluid collection as above. This is typical for an olecranon bursitis. The sterility of this fluid cannot b e assessed by imaging and clinical correlation will be required. 2. No osteochondral abnormality is identified. 4. The tendons and ligaments of the elbow are intact as imaged. 5. There is evidence of a nonspecific myositis involving the triceps musculature, as well as within t he flexor musculature of the forearm. Dictated: 03/06/2022 7:34 PM Transcribed: 03/06/2022 8:13 PM Tiki [id number] [email or web address] Electronically signed by: Chuck Phoenix M.D. 03/06/2022 9:30 PM
[2022-03-07] MEDS: DAPTOmycin 500 MG in SYRINGE 0 ML IV SCH (02:47)
[2022-03-07 09:33] LABS: Basophils # (auto) 0.04 K/uL (0-0.2); Basophils % (auto) 0.5 %; Eosinophils # (auto) 0.04 K/uL (0-0.50); Eosinophils % (auto) 0.5 %; Hemoglobin 13.5 g/dl (14.0-18.0); Immature Granulocytes # (auto) 0.05 K/uL (0.00-0.02); Immature Granulocytes % (auto) 0.6 %; Lymphocytes # (auto) 1.19 K/uL (1.2-3.4); Lymphocytes % (auto) 13.5 %; Mean Corpuscular Hemoglobin 29.2 pg (25.0-34.0); Mean Corpuscular Hgb Conc 34.6 g/dL (32.0-36.0); Mean Corpuscular Volume 84.4 fL (80.0-100.0); Mean Platelet Volume 9.2 fL (9.4-12.4); Monocytes # (auto) 0.82 K/uL (0.24-0.82); Monocytes % (auto) 9.3 %; Neutrophils % (auto) 75.6 %; Platelet Count 308 K/uL (130-400); RDW Coefficient of Variation 12.2 % (11.5-14.5); Red Blood Count 4.62 M/uL (4.63-6.08); White Blood Count 8.84 K/ul (4.8-10.8)
[2022-03-07 09:56] LABS: Anion Gap 9 (3-11); BUN Creatinine Ratio 13.4 (10-20); Blood Urea Nitrogen 9 mg/dl (6-23); Calcium 9.8 mg/dl (8.5-10.1); Carbon Dioxide 25 mmol/L (21-32); Chloride 101 mmol/L (98-107); Creatinine Clr Calc Pharmacy 225.8 ml/min; Est GFR (African American) > 150.0 ml/min; Est GFR (Non-African American) 134.5 ml/min; Glucose 81 mg/dl (70-99(Fasting)); Potassium 3.8 mmol/L (3.5-5.1); Sodium 135 mmol/L (136-145)
--- NOTE | 2022-03-07 12:59 | History & Physical Bridge Note ---
Date of Service March 07, 2022 History & Physical Bridge Note I have examined the patient, reviewed the History & Physical and in the interval since the performance of the History & Physical I have noted the following changes of clinical significance: no changes noted
--- NOTE | 2022-03-07 13:42 | Progress Notes ---
DATE OF SERVICE: 03/07/2022. SUBJECTIVE: A 26-year-old gentleman admitted with right upper extremity cellulitis and a septic olec ranon bursitis. He has made significant improvement since he started on the IV antibiotics. Still p retty sore, but improved. No other complaints. OBJECTIVE: VITAL SIGNS: Temperature is 37.4. Vital signs are stable. A little tachycardic at 111. EXTREMITIES: Physical examination of the right arm reveals diffuse swelling of the entire arm. He d oes have redness around his posterior elbow primarily, but extending proximally and distally, but mar kedly improved from the previously drawn line. Elbow motion is about 10 degrees short of full extens ion and about 105 degrees of flexion. He is neurologically intact. He does have gross pus extruding from the puncture site from the aspiration. IMAGING DATA: MRI was reviewed. It does show a pretty significant fluid accumulation in his olecran on bursa. It looks edematous and inflamed. He has got about a 5 x 3 cm fluid collection. LABORATORY DATA: Culture results from the ER were reviewed. Culture is showing methicillin-resistan t Staphylococcus aureus. ASSESSMENT: A 26-year-old male admitted with a right upper extremity cellulitis and septic olecranon bursitis. He has a history of MRSA infection and this is a similar-type infection. He has responde d to some of the antibiotics, but he has got pus coming out of his posterior olecranon bursa area, wh ich would benefit from surgical management. PLAN: We talked about treatment options. We are going to proceed with formal irrigation and debride ment of this septic olecranon bursitis. Continue on the antibiotics for MRSA. Likely a period of br ief immobilization postoperatively. The risks and benefits of this procedure were explained to the p atient and mom in depth. They would like to proceed. Informed consent was obtained. Job ID: [id number]
[2022-03-07] MEDS ORDERED: ATROPINE SULFATE 0.1 MG/ML 10ML SYR IV PRN (16:28)
[2022-03-07] MEDS ORDERED: HYDROmorphone INJ 2 MG/ML SYR/VIAL IV PRN (16:28)
[2022-03-07] MEDS ORDERED: ONDANSETRON INJ 2 MG/ML 2 ML VIAL IV PRN ×2 (16:28→19:25)
[2022-03-07] MEDS ORDERED: ePHEDrine sulfate 50 MG/ML AMP IV PRN (16:28)
[2022-03-07] MEDS ORDERED: PROMETHAZINE HCL 12.5 MG in SODIUM CHLORIDE 0.9% 50 ML IV PRN (16:28)
[2022-03-07] MEDS ORDERED: fentaNYL citrate 100 MCG/2 ML VIAL IV PRN (16:28)
--- NOTE | 2022-03-07 16:28 | Anesthesiology Consultation ---
Date of Service March 07, 2022 Assessment & Plan Chart Review Chart Review: Acceptable Risk for Surgery Consults Requested none History Surgery Operation Date: 03/07/22 10:20 Proposed Procedures p Right Incision and Drainage Tahir Sanchez MD Height/Weight Height: 6 ft 2 in Weight: 111.5 kg Allergies Allergy/AdvReac Type Severity Reaction Status Date / Time No Known Allergies Allergy Unverified 03/05/22 20:51 Medications Home Medications Medication Instructions Recorded Confirmed Last Taken ibuprofen 200 mg tablet (Advil) 600 mg PO TID PRN 03/06/22 03/06/22 Unknown Active Medications Generic Name Dose Route Start Last Admin Trade Name Freq PRN Reason Stop Dose Admin Acetaminophen 650 mg 03/06/22 03:24 03/06/22 15:12 Acetaminophen 325 Mg Tab PO 04/05/22 03:23 650 mg Q6H PRN Administration pain/fever Daptomycin 500 mg/ Syringe 10 mls @ 5.75 mls/min 03/06/22 03:00 03/07/22 02:47 IV 03/13/22 02:59 5.75 mls/min Q24H LORE Administration Protocol NPO Date Last Intake of Fluids: 03/06/22 Time Last Intake of Fluids: 23:30 Date Last Intake of Solids: 03/06/22 Time Last Intake of Solids: 20:00 Past Medical History Medical History History of MRSA infection Social History Smoking Status: Never smoker Hx Alcohol Use: No Hx Substance Use: No Physical Exam Vital Signs Last Vital Signs Temp 37.8 C H 03/07/22 15:57 Pulse 117 H 03/07/22 15:57 Resp 18 03/07/22 15:57 BP 138/73 03/07/22 15:57 Pulse Ox 97 03/07/22 15:57 Testing Laboratory Results 03/07/22 09:16 03/07/22 09:16 PT 11.1 Seconds (9.0-12.0) 03/05/22 19:42 INR 1.0 (0.9-1.1) 03/05/22 19:42 APTT 30.6 Seconds (21.0-31.0) 03/05/22 19:42 03/05/22 22:00 Gram Stain - Final Elbow,Right Aerobic and Anaerobic Culture - Preliminary Staph aureus MRSA 03/05/22 20:31 Aerobic Blood Culture - Preliminary Blood No growth in Aerobic bottle after 24 hours. Anaerobic Blood Culture - Final 03/05/22 19:42 Aerobic Blood Culture - Preliminary Blood No growth in Aerobic bottle after 24 hours. Anaerobic Blood Culture - Preliminary No growth in Anaerobic bottle after 24 hours.
[2022-03-07] MEDS ORDERED: PROPOFOL IV EMULSION 10 MG/ML 20 ML VIAL IV ONE (16:44)
[2022-03-07] MEDS ORDERED: fentaNYL citrate 100 MCG/2 ML VIAL ONE ×3 (16:44→17:49)
[2022-03-07] MEDS ORDERED: DEXAMETHASONE SOD INJ 4 MG/ML VIAL ONE (16:46)
[2022-03-07] MEDS ORDERED: ONDANSETRON INJ 2 MG/ML 2 ML VIAL ONE (16:46)
[2022-03-07] MEDS ORDERED: VANCOMYCIN HCL 1000MG/20ML VIAL ONE (16:57)
[2022-03-07] MEDS ORDERED: LIDOCAINE 2% 2 ML VIAL/AMP(20MG/ML) INFIL ONE (17:03)
[2022-03-07] MEDS ORDERED: MIDAZOLAM HCL 1 MG/ML 2ML VIAL ONE (17:04)
--- NOTE | 2022-03-07 18:04 | Hospitalist Progress Note ---
Date of Service March 07, 2022 Assessment & Plan (1) Sepsis: Plan: - Met sepsis criteria with fever and tachycardia with source of cellulitis and bursitis of R elbow - Treated with IVF, empiric abx (covering specifically for MRSA d/t his history) with Daptomycin - APAP as needed for fever >38C or pain - Blood cultures x 2 sets, NGTD - Fluids stopped on 03/06 - Still manifesting low grade temps and mild tachycardia which I do not think will resolve until after bursa is I&D'd (2) Cellulitis of right elbow: Plan: - Cellulitis is secondary to septic olecranon bursitis confirmed by MRI - Fluid aspirated and sent for C&S = MRSA - Continue Daptomycin with plans to convert to oral Bactrim upon d/c - For I&D today with Dr. Sanchez, will need wound care plan following I&D and outpatient f/u - Diet can be advanced to regular once out of OR and back to floor Plan: Make full admission as he will still need to stay another night due to still being in OR rather late. Will plan to d/c home tomorrow. Discussed with Dr. Sierra. Admission and Anticipated Discharge Date Admission Date: March 06, 2022 Supervising Physician Co-Signing Physician Notes PA Supervision Note: I did not personally see or examine the patient today, but I verified all mix points of TIA Madera's assessment and plan with the following exceptions/additions: None Subjective Patient seen on daily rounds this morning. Reports doing better today. Continues to manifest low grade fevers. MRI of R elbow performed on 03/06 confirmed olecranon bursitis. NPO today with plans for OR I&D by Dr. Sanchez today. Review of Systems Review of Systems: All systems reviewed and are unremarkable except as noted in HPI and below. Denies chills, fatigue, headache, nasal congestion, sore throat, cough, chest pain, shortness of breath, palpitations, orthopnea, PND, abdominal pain, n/v/d, constipation, dysuria, hematuria, frequency, back pain, easy bruising or bleedin g. Physical Exam Physical Exam: GENERAL: 26 yo WD/WN healthy WM. NAD. LUNGS: Clear to auscultation bilaterally. No W/R/R. CARDIOVASCULAR: Normal S1 S2 tachycardic, no m/g/r ABDOMEN: Soft, non-tender and non-distended. BS normoactive x 4 quad. EXTREMITIES: No edema. Non-tender. Peripheral pulses +2/4. NEUROLOGIC: A&O x3. PSYCHIATRIC: Cooperative. Appropriate mood and affect. SKIN: Right elbow and forearm erythematous and edematous. With removal of bandage, active purulent drainage from area of aspiration. Results & Data Results & Data ([facility]) Vital Signs (Past 12 Hours) Vital Signs Temp Pulse Resp BP Pulse Ox 03/07/22 15:57 37.8 C H 117 H 18 138/73 97 03/07/22 15:14 37.4 C 98 H 18 125/73 95 03/07/22 07:30 37.4 C 111 H 16 124/72 99 Laboratory Results 03/07/22 09:16 03/07/22 09:16 Spec: [id number] Collected: 03/05/22 Received: 03/05/[address]: Adrianne Vaughn M.D. Source: Elbow,Right OV Order: Ordered: Aer/Mojgan Cult/Sm Procedure Result Verified Site Gram Stain Final 03/06/22 Gram Stain Result Many WBCs Seen Few Gram Positive Cocci Aero/Mojgan Cult Preliminary 03/07/22 Organism 1 Staph aureus MRSA Quantity Many Sens Sensitivities to Follow MRSA RX M.I.C. --- --------- Clindamycin S <=0.5 Daptomycin S <=0.5 Erythromycin S <=0.5 Oxacillin R >2 Rifampin S <=1 Tetracycline S <=4 Trimeth/Sulfa S <=0.5/9.5 Vancomycin S 2 PG Care Time/CCT Total # of Minutes Spent Total Time Spent with Patient: Total time spent is greater than 50% in coordination of care (as documented) at patient's floor/unit and/or counseling patient: Coding Level of Care Code 37751 Subseq Hosp Care Lvl 2 Diagnoses Sepsis A41.9 Cellulitis of right elbow L03.113
[2022-03-07] MEDS ORDERED: KETOROLAC 30 MG/ML VIAL ONE (18:08)
--- NOTE | 2022-03-07 18:24 | Operative Report ---
PG Post Operative Report Pre & Post Diagnosis Operation Date: 03/07/22 10:20 Pre-Op Diagnosis: Right septic elbow olecranon bursitis Post-Op Diagnosis: Right septic elbow olecranon bursitis I identified the patient and participated in the time-out.: Yes Procedure Operation Date: 03/07/22 10:20 Actual Procedures p Right Elbow Incision and Drainage septic Olcecranon Bursa - Kalpesh Sanchez MD Surgeon Kalpesh Sanchez MD Toxicology Supervisor Chris Harding PA-C Estimated Blood Loss 30 Findings Consistent with Post-Op Diagnosis Operative findings revealed a collection of a gross pus in the olecranon bursa. He had a chronic Thickening and of his olecranon bursa for about a distance of about 6-7 cm. 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 He does report that this was initially related to some type of contusion and then it just got worse over time. She brought the emergency room and admitted with significant cellulitis of the entire arm. Imaging studies suggested septic olecranon bursitis. He was growing out MRSA from the elbow olecranon aspirate. There was no signs of joint involvement. He does have a history of recurrent MRSA infections. Patient indicated for irrigation debridement. Description of Procedure The patient was taken to the operating, identified, placed on the operating table supine position protectors were properly padded. The patient's been receiving IV antibiotics. A general anesthetic was implemented. A right upper extremity tourniquet was placed in the right arm was then prepped and draped in usual sterile fashion. The right arm was elevated but not exsanguinated. The tourniquet was placed at 250 mmHg. A posterior approach to the elbow was then performed to a slightly curvilinear incision over the lateral aspect of the olecranon area. Total distance was about 10 cm. Sharp dissection was carried through subcutaneous tissue directly down the bursa. There was gross pus and purulence in the bursa. The bursa itself was fairly necrotic and inflamed. I opened this up the hallway. We irrigated this extensively. I then used scissors to excise the bursa tissue. I also used a curette to curette any necrotic tissue and then a rongeur to further debride this. Once we were complete we irrigated the wound extensively. We used 3 L of pulsatile lavage with antibiotic in it. The tourniquet was let down for turn time 12 minutes. Hemostasis assured use electrocautery. I then placed 1 g of powdered vancomycin in the wound and then closed up the skin with a combination of 2-0 and 3-0 nylon suture in a simple fashion. The arm was then cleaned and dried and sterile dressing was Xeroform, 4 x 4's, sterile cast padding and a posterior splint and sling were applied. The patient then brought Kranthi incision transferred to the recovery room in stable condition. Patient tolerated the procedure well and there were no complications. Chris Harding, my physician engineer assistant, was present for the entire procedure. His assistance was required for proper patient positioning, prepping and draping, surgical exposure, retraction, perform the technical details of the operation, closure of the wound, and placement of the sterile bandage, splint, and sling. I attest to the content of the Intraoperative Record and any orders documented therein. Any exceptions are noted below.
[2022-03-07] MEDS ORDERED: HYDROmorphone INJ 0.5 MG/0.5 ML SYR IV PRN (19:25)
[2022-03-07] MEDS ORDERED: NALOXONE HCL 0.4 MG/1 ML VIAL/CARP IV PRN (19:25)
[2022-03-07] MEDS ORDERED: MAGNESIUM HYDROXIDE SUSP 30 ML UDC PO PRN (19:25)
[2022-03-07] MEDS ORDERED: METOCLOPRAMIDE HCL INJ 5 MG/ML 2 ML VIAL IV PRN (19:25)
[2022-03-07] MEDS ORDERED: diphenhydrAMINE Capsule 25 MG CAP PO PRN (19:25)
[2022-03-07] MEDS ORDERED: bisacodyL 10 MG SUPP PR PRN (19:25)
[2022-03-07] MEDS ORDERED: SODIUM CHLORIDE 0.9% 1000ML 1,000 ML IV SCH (19:25)
[2022-03-07] MEDS ORDERED: ALUMINUM/MAGNESIUM SUSP 30 ML UDC PO PRN (19:25)
[2022-03-07] MEDS ORDERED: oxyCODONE HCL IR 5 MG TAB (IMMEDIATE RELEASE) PO PRN (19:25)
--- NOTE | 2022-03-07 19:48 | Anesthesiology Progress Note ---
Date of Service March 07, 2022 Anesthesia Post Procedure Vital Signs Vital Signs: Temp Pulse Pulse Resp BP Pulse Ox 03/07/22 19:43 36.8 C 80 18 142/79 H 95 03/07/22 19:00 82 16 148/86 H 96 03/07/22 18:45 36.7 C 92 H 18 147/94 H 95 03/07/22 18:35 84 19 145/90 H 95 03/07/22 18:25 75 18 134/86 100 03/07/22 18:16 36.4 C L 76 18 124/78 99 03/07/22 15:57 37.8 C H 117 H 18 138/73 97 03/07/22 15:14 37.4 C 98 H 18 125/73 95 03/07/22 07:30 37.4 C 111 H 16 124/72 99 03/06/22 21:09 37.8 C H 110 H 20 135/78 97 Pain Intensity Right Elbow: Pain Intensity: 3 Transfer of Care Handoff Completed per policy Notes Mental Status: alert / awake / arousable and participated in evaluation Patient Amnestic to Procedure: Yes Nausea / Vomiting: adequately controlled Pain: adequately controlled Airway Patency, RR, SpO2: stable & adequate BP & HR: stable & adequate Hydration State: stable & adequate Anesthetic Complications: no major complications apparent
[2022-03-07] MEDS ORDERED: SENNA 8.6 MG TAB PO SCH (21:00)
[2022-03-07] MEDS: ACETAMINOPHEN 500 MG TAB PO SCH (21:21)
[2022-03-07] MEDS: KETOROLAC 30 MG/ML VIAL IV SCH (21:22)
[2022-03-07] MEDS: ASPIRIN 81 MG ECTAB PO SCH (21:22)
[2022-03-07] MEDS: DOCUSATE SODIUM 100 MG CAP PO SCH (22:19)
[2022-03-08] MEDS: DAPTOmycin 500 MG in SYRINGE 0 ML IV SCH (01:42)
[2022-03-08] MEDS: KETOROLAC 30 MG/ML VIAL IV SCH ×3 (01:42→13:02)
[2022-03-08] MEDS: ACETAMINOPHEN 500 MG TAB PO SCH ×2 (05:39→13:07)
[2022-03-08] MEDS: ASPIRIN 81 MG ECTAB PO SCH (08:15)
[2022-03-08] MEDS: DOCUSATE SODIUM 100 MG CAP PO SCH (08:15)
[2022-03-08] MEDS ORDERED: MULTIVITAMIN TAB PO SCH (09:00)
--- NOTE | 2022-03-08 09:17 | Discharge Summary ---
Date of Service March 08, 2022 Admission HPI Per Admitting Provider Adrian Haley is a 26yo male with h/o MRSA (hand cellulitis x2) who presented to [facility] ED for a skin infection of his right elbow. Patient reports that he bumped his right elbow into a wall ~6 days ago and the next day noticed a red rash over the elbow. Over last 5 days it has progressively increased in size - now has an erythematous rash from right elbow to right wrist with associated warmth, swelling and tenderness which is greatest over the elbow itself. Also reports subjective fever/chills which started ~1 day ago. He went to [facility] and was told to come to the ED. Patient denies laceration of right elbow/arm. Denies nausea/vomiting, shortness of breath, or other rashes. He does not drink or smoke. In the ED the patient was febrile with T38.3C, tachypneic at 27, and tachycardic to 128. Labs significant for WBC 9.89 (neutrophilic predominance and mild left shift), TBili 1.4. Lactate 0.9. CBC/CMP otherwise WNL. COVID-19 negative. XR right elbow showing soft tissue edema without signs of osteomyelitis. ED provider performed arthrocentesis of right bursa with purulent fluid - gram stain/cx pending. Patient was given Ancef 3g IV x1 and Bactrim PO x1. Was also given Tylenol 1g PO x1 and NSS 1L bolus. Blood cx and right bursa fluid cx taken before initiation of abx. Principal Diagnosis 1. Sepsis syndrome-resolved 2. Septic olecranon bursitis on R Discharge Exam GENERAL: 26 yo WD/WN healthy WM. NAD. LUNGS: Clear to auscultation bilaterally. No W/R/R. CARDIOVASCULAR: RRR, no m/g/r ABDOMEN: Soft, non-tender and non-distended. BS normoactive x 4 quad. EXTREMITIES: R arm in sling. No edema. Non-tender. Peripheral pulses +2/4. Radial/ulnar pulses intact on R. Cap refill <2 sec. NEUROLOGIC: A&O x3. PSYCHIATRIC: Cooperative. Appropriate mood and affect. SKIN: Right elbow and forearm dressed and wrapped in brittani. Discharge Data Allergies Allergy/AdvReac Type Severity Reaction Status Date / Time No Known Allergies Allergy Unverified 03/05/22 20:51 Consultations 03/06/22 00:51 ED Decision to Admit Stat 03/06/22 12:10 Consult Orthopedic Surgery Routine Procedures Performed Operation Date: 03/07/22 10:20 Actual Procedures p Right Elbow Incision and Drainage Olcecranon Bursa - Kalpesh Sanchez MD Ordered Studies Elbow X-Ray 03/05/22 20:17 XR elbow RT min 3V routine CLINICAL HISTORY: possible cellutlitis. COMPARISON STUDY: No previous studies for comparison. TECHNIQUE: 3 right elbow views FINDINGS: Bones: There is no evidence for an acute fracture or dislocation. There is no lytic or blastic lesion. Joints: The joint spaces are maintained. There is no evidence for an intra-articular effusion or elevation of the fat pads. The bones are in anatomic alignment. Soft tissues: There is diffuse subcutaneous edema surrounding the elbow. The findings are characteristic of cellulitis. No air is seen within the soft tissues. There is no radiopaque foreign body. IMPRESSION: 1. No acute osseous pathology. 2. Diffuse subcutaneous edema characteristic of cellulitis. ACT 112: Negative or not required by law. Electronically signed by: Zak Luke M.D. 03/06/2022 7:07 AM Vascular Ultrasound 03/05/22 22:04 US extremity non-vascular ltd right elbow CLINICAL HISTORY: abscess R elbow bursa w cellulitis TECHNIQUE: Real-time grayscale sonographic images of the right elbow were obt ained. Comparison: None available at the time of this dictation. FINDINGS: There is diffuse subcutaneous edema surrounding the right elbow characteristic of cellulitis. However, there is no focal fluid seen within the olecranon bursa with no evidence for olecranon bursitis. IMPRESSION: Diffuse cellulitis with no evidence for olecranon bursitis. ACT 112: Negative or not required by law. Electronically signed by: Zak Luke M.D. 03/06/2022 7:15 AM Elbow MRI 03/06/22 16:34 MRI OF THE ELBOW COMBO CLINICAL HISTORY: Bursitis. COMPARISON STUDY: Radiographs of the right elbow dated 03/05/2022. TECHNIQUE: MRI of the right elbow is performed utilizing various T1 and T2- weighted sequences in the axial, sagittal, and coronal planes. Contrast-enhanced sequences were acquired following the IV administration of 11 cc of Gadavist. Examination is severely degraded by motion artifact. FINDINGS: Normal marrow signal intensity is maintained throughout the visualized bony structures. There is no MRI evidence of fracture. There is trace joint fluid with no significant effusion identified. The common flexor and common extensor tendons are intact. The radial and ulnar collateral ligaments are intact as visualized. No osteochondral abnormality is identified. The long head of the biceps tendon and the triceps tendon are intact. There is significant soft tissue edema identified around the elbow, greatest dorsally. There is a multiloculated fluid collection overlying the olecranon process measuring approximately 5 x 2 x 4.5 cm. This demonstrates nonspecific peripheral enhancement. There is nonspecific edema within the triceps musculature, as well as within the flexor musculature of the upper forearm. IMPRESSION: 1. Significantly motion compromised examination. 2. Soft tissue edema is present around the elbow with a peripherally enhancing olecranon bursal fluid collection as above. This is typical for an olecranon bursitis. The sterility of this fluid cannot be assessed by imaging and clinical correlation will be required. 2. No osteochondral abnormality is identified. 4. The tendons and ligaments of the elbow are intact as imaged. 5. There is evidence of a nonspecific myositis involving the triceps musculature, as well as within the flexor musculature of the forearm. Dictated: 03/06/2022 7:34 PM Transcribed: 03/06/2022 8:13 PM Tiki [id number] [facility] Electronically signed by: Chuck Phoenix M.D. 03/06/2022 9:30 PM Hospital Course (1) Sepsis: - Met sepsis criteria with fever and tachycardia with source of cellulitis and bursitis of R elbow - Treated with IVF, empiric abx (covering specifically for MRSA d/t his history) with Daptomycin - APAP as needed for fever >38C or pain - Blood cultures x 2 sets, NGTD - Fluids stopped on 03/06 - Fever and tachycardia has RESOLVED (2) Cellulitis of right elbow: - Cellulitis is secondary to septic olecranon bursitis confirmed by MRI - Fluid aspirated and sent for C&S = MRSA - Empirically started on Daptomycin based on history - Underwent I&D with Dr. Sanchez on 03/07 - Has received total of 3 doses of IV Dapto, will change to start Bactrim DS, first dose this evening 03/08 - Continue post-surgical dressing until seen in the office by Dr. Sanchez - Literature advises can transition from IV to PO antibiotics if clinically improving (which he is). Will treat for total of 2 weeks. Plan At this time, patient is medically and hemodynamically stable for discharge home today. Will f/u with Dr. Sanchez in the office on 03/13. Antibiotic regimen as outlined above. I have discussed case with Dr. Sanchez as well as attending, Dr. Sierra. Total Time Total Time Spent Total Time Spent (In Minutes): >30 minutes Discharge Plan Discharge Items Patient Disposition: Home - Self-Care Reason For Visit: SEPSIS Discharge Diagnosis: infected bursa of right elbow Activity: Per Instructions section Lifting: None Lifting Comment: No lifting with right arm Non-emergency contact: Primary Care Provider and Surgeon Call non-emergency contact if: you have any medication questions and your symptoms worsen Follow-up/Referrals: Kalpesh Sanchez MD [Physician] - 03/13/22 1:20 pm PCP,NO [Primary Care Provider] - Diet: Regular Addtl Attending Provider Instructions: You were hospitalized due to infection in the fluid filled sac in your right elbow. You were treated with IV antibiotics and orthopedics performed an incision and drainage of the infection in your elbow. The fluid was consistent with growth of methicillin-resistant staph aureus (a resistant type of bacteria). You will be discharged home on an antibiotic called Bactrim, you will take this medication twice a day until it is completely gone. You are due for your next dose on 03/08/22 in the evening before bed. Please follow all wound care instructions as outlined below. You will be scheduled for a follow up appointment with orthopedics in the office for recheck. If you have any questions following your discharge, you may call the number listed on your discharge paperwork. Addtl [employer] Provider Instructions: Leave your dressing in place until you are seen in the office in follow up by orthopedics. Do not get dressing wet. When showering, cover with a plastic bag and tape in place. You may use Tylenol and/or Motrin as needed for pain. You may apply ice to the elbow as needed. Do not use your right arm to lift/push/pull anything until otherwise directed by orthopedics. You may use sling if it is more comfortable for you. You do not need to wear it to sleep. Take breaks by removing sling and moving your shoulder around to prevent stiffening. Pending Studies at Discharge: No Stand-Alone Forms: My [facility] [employer], Smoking Cessation Medications and DC Order Prescriptions: New sulfamethoxazole-trimethoprim [Bactrim DS] 800-160 mg tablet 1 tab PO BID 14 Days Qty: 28 0RF Continued ibuprofen [Advil] 200 mg Tablet 600 mg PO TID PRN (Reason: Headache/pain) Discharge Orders: Discharge Order (Routine); Ordered 03/08/22 Ordered By: Molly Cortés/Other Patient Handouts: What Is Bursitis Admission Data Admit Date/Time: 03/07/22 17:55 Attending Provider: Huma Sierra Admit Provider: Jean Carlos Douglass Primary Care Provider: PCP,NO Other Providers: Joshua Umanzor ; John Mzea ; Kalpesh Sanchez Supervising Physician Co-Signing Physician Notes PA Supervision Note: I personally saw and examined the patient. I verified all mix points and agree with TIA Mad[place] with the following exceptions and/or additions: S-Pt feeling well, no further fevers since I&D. No other concerns O- Vitals reviewed Gen: [AAOx3, NAD] HEENT: [anicteric sclerae, EOMI] CV: [RRR no mgr nl S1S2] Pulm: [CTAB no wcr] Ext: [RUE in BRITTANI wrap not removed, NVI distally] Skin: [no rashes, warm/dry] Neuro: [full strength throughout] Wd cx with MRSA A/P-26 yo male here with right septic olecranon bursitis and sepsis. Much improved now s/p bursectomy and I&D. Stable for dc to home on po Bactrim with close Ortho outpt f/u. Coding Level of Care Code D/C DAY MANAGEMENT >30 MINS Diagnoses Sepsis A41.9 Cellulitis of right elbow L03.113
== END 2022-03-08 14:58 | disposition home or self-care (01) | DRG 854 ==
LOC: 3W 19:25 → ED 19:25 → SUATTDRO 03-06 02:01 → 3W 03-06 03:14